=== PATIENT | female | born 1965 | race Caucasian/White ===

== ENCOUNTER → 2018-08-04 | Outpatient (CLI) | payer MEDICARE, OTHER | END | disposition home or self-care (01) | LOC: LABWHC1 08:12 | PROVIDERS: ATTEND Psychiatry & Neurology Pain Medicine | DX: Z53.9 Procedure and treatment not carried out, unspecified reason (principal) ==

== ENCOUNTER → 2018-08-11 | Outpatient (CLI) | payer MEDICARE, OTHER ==
[2018-08-11 09:56] VITALS: BP 119/84; PULSE 77; RESP 16; TEMP 97.6; BMI 35.5
--- NOTE | 2018-08-11 10:32 | P.HPOB ---
History of Present Illness H&P Date: 08/11/18 Chief Complaint: The patient is here for her routine gynecologic exam and mammogram. This is a 53-year-old with an LMP of 2017. The patient is without gynecologic complaints and denies any postmenopausal bleeding. She has lost over 100 pounds following her bariatric surgery done in June 2017. Review of Systems The patient has lost 113 pounds over the last year following Her bariatric surgery. She denies respiratory, cardiac, or G.I. problems. Neuro: she has had episodes of dizziness over the past 2 months and is undergoing neurological evaluation for this. Past Medical History Past Medical History: Asthma, Diabetes Mellitus (Type II diabetes diet controlled after bariatric surgery), Hypertension (Diet controlled after bariatric surgery) Additional Past Medical History / Comment(s): TYPE II DM with peripheral neuropathy. 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 History of Any Multi-Drug Resistant Organisms: None Reported Past Surgical History: Bariatric Surgery (Gastric sleeve), Bladder Surgery, Uterine Ablation Additional Past Surgical History / Comment(s): Hemorrhoid removal. Colonoscopy 2012 Past Psychological History: Depression Smoking Status: Former smoker (Quit 1998) Past Alcohol Use History: None Reported Past Drug Use History: None Reported Additional History: She has been since 2005 and is disabled because of her neuropathy. - Past Family History Father Family Medical History: Myocardial Infarction ([place]) Additional Family Medical History / Comment(s): Aortic aneurysm Mother Family Medical History: Cancer (Lung cancer) Additional Family Medical History / Comment(s): Aunt had breast cancer. Sister(s) Family Medical History: Cancer (Colon cancer) Medications and Allergies Home Medications Medication Instructions Recorded Confirmed Type Aspirin 81 mg PO DAILY 08/10/18 08/11/18 History Atorvastatin [Lipitor] 10 mg PO HS 08/10/18 08/11/18 History Cholecalciferol (Vitamin D3) 2,000 unit PO DAILY 08/10/18 08/10/18 History [Vitamin D3] DULoxetine HCL [Cymbalta] 60 mg PO DAILY 08/10/18 08/11/18 History Gabapentin [Neurontin] 300 mg PO TID 08/10/18 08/11/18 History Meclizine [Antivert] 25 mg PO BID 08/10/18 08/11/18 History Omeprazole 20 mg PO DAILY 08/10/18 08/11/18 History Allergies Allergy/AdvReac Type Severity Reaction Status Date / Time hydromorphone [From Dilaudid] Allergy Rash/Hives Verified 08/11/18 09:43 Penicillins Allergy Unknown Verified 08/11/18 09:43 Childhood Sulfa (Sulfonamide Allergy Rash/Hives Verified 08/11/18 09:43 Antibiotics) metronidazole [From Flagyl] AdvReac Severe Nausea Unverified 08/11/18 09:44 Exam Vital Signs Temp Pulse Resp BP Pulse Ox 08/11/18 09:47 97.6 F 77 16 119/84 98 Intake and Output 08/10/18 08/11/18 08/11/18 22:59 06:59 14:59 Other: Weight 99.79 kg Height 5'6", weight 220 pounds, BMI 35.5. This is a well-developed well-nourished heavyset white female who is alert and oriented times 3 in no acute distress. HEENT: Within normal limits. NECK: Supple without mass or thyromegaly. CHEST AND LUNGS: Clear to auscultation. HEART: Regular rate and rhythm. BREASTS: Are without mass or discharge. AXILLARY EXAM: Negative for adenopathy. BACK: Negative for CVA tenderness. ABDOMEN: Soft, nontender, without palpable masses. PELVIC EXAM: Normal external genitalia with mild atrophy. Cervix and vagina appear normal is mild atrophy. There is no unusual discharge. There is no evidence of prolapse. The uterus is midposition, nongravid size and nontender. There are no palpable adnexal masses or tenderness. RECTAL EXAM: rectovaginal exam is negative for mass or tenderness and is negative for occult blood. EXTREMITIES: Nontender. IMPRESSION: 1. 53-year-old menopausal female with normal gynecologic exam. 2. Significant weight loss following bariatric surgery one year ago. PLAN: 1. Pap smear was performed. 2. Self breast awareness was discussed with the patient. 3. Screening mammogram will be done today. 4. Osteoporosis prevention was discussed. I have stressed the importance of adequate calcium, vitamin D and regular exercise. Recommended amounts of calcium and vitamin D were also discussed. 5. She will return in one year.
--- NOTE | 2018-08-12 11:21 | MM ---
Reason for exam: screening (asymptomatic). Last mammogram was performed 1 year and 2 months ago. History: Patient is postmenopausal. Family history of breast cancer in maternal aunt. Physical Findings: A clinical breast exam by your physician is recommended on an annual basis and results should be correlated with mammographic findings. MG 3D Screening Mammo W/Cad Bilateral CC and MLO view(s) were taken. Prior study comparison: June 09, 2017, bilateral MG 3d screening mammo w/cad. May 27, 2016, bilateral MG 3d screening mammo w/cad. The breast tissue is heterogeneously dense. This may lower the sensitivity of mammography. No suspicious abnormality. No significant changes when compared with prior studies. ASSESSMENT: Negative, BI-RAD 1 RECOMMENDATION: Routine screening mammogram of both breasts in 1 year.
== END | disposition home or self-care (01) ==
LOC: WWCWWP 09:12
PROVIDERS: ATTEND Obstetrics & Gynecology
DX: Z12.31 Encounter for screening mammogram for malignant neoplasm of breast (principal)
CPT/HCPCS: 77063; 77067

== ENCOUNTER → 2018-08-12 | Day surgery (SDC) | payer MEDICARE, OTHER ==
[2018-08-10 13:10] VITALS: BMI 34.9
[~2018-08-12] MED LIST: SODIUM CHLORIDE 0.9% 1,000 ML IV SCH
[2018-08-12 08:33] VITALS: RESP 18; TEMP 97.7
[2018-08-12 10:23] VITALS: BP 145/99; PULSE 63
--- NOTE | 2018-08-12 15:35 | P.PCN ---
Preoperative Diagnosis: Diagnosis Recurrent dizzy spells Twelve-lead ECG shows sinus rhythm normal PA narrow QRS normal ST segments Tilt table test per protocol Baseline blood pressure 134/91 mmHg She was tilted upright at an angle of 70 per protocol after about 40 minutes into the tilt sinus tachycardia 207 beats was noted. She started sweating became dizzy and lightheaded and then passed out. At that time the lowest blood pressure recorded was 63/43 mmHg. This was followed by bradycardia to 44 beats a minute When she was laid supine her blood pressure and heart rate normalized Impression Normal twelve-lead ECG Vasodepressive response to upright tilting him a neurocardiogenic syncope
== END ==
LOC: CATHEP 07:59
PROVIDERS: ATTEND Internal Medicine Clinical Cardiac Electrophysiology
DX: R55 Syncope and collapse (principal); Z88.0 Allergy status to penicillin
CPT/HCPCS: 81025; 93660

== ENCOUNTER 2018-11-24 10:15 | Day surgery (SDC) | payer MEDICARE, OTHER ==
[2018-11-23 11:44] VITALS: BMI 35.6
[2018-11-24] MEDS ORDERED: LIDOCAINE 1% 20 ML VIAL (10MG/ML) FOR IV START INTRADERMA ONE (10:50)
[2018-11-24] MEDS ORDERED: LACTATED RINGERS 1,000 ML IV ONE (10:50)
[2018-11-24 10:54] VITALS: RESP 16; TEMP 97.8
[2018-11-24 10:56] LABS: Glucose,Whole Blood 81 mg/dL (75-99)
[2018-11-24] MEDS ORDERED: PROPOFOL 10 MG/ML 20 ML VIAL IV ONE (11:56)
--- NOTE | 2018-11-24 11:56 | P.GSHP ---
History of Present Illness H&P Date: 11/24/18 Chief Complaint: Screening, family history Patient here today for screening colonoscopy. Family history of colon cancer in her sister. She was scheduled for upper and lower endoscopy yesterday. Her bowel prep and unfortunately was poor and her colonoscopy was aborted. Past Medical History Past Medical History: Asthma, Diabetes Mellitus, Hypertension, Syncope Additional Past Medical History / Comment(s): TYPE II DM w/ peripheral neuropathy. VASOVAGAL SYNCOPE. HAS LOW BLOOD PRESSURE NOW. ATTEMPTED COLONOSCOPY TODAY UNSUCCESSFUL. History of Any Multi-Drug Resistant Organisms: None Reported Past Surgical History: Bariatric Surgery, Bladder Surgery, Uterine Ablation Additional Past Surgical History / Comment(s): Hemorrhoid removal. Colonoscopy 2012. 06/2017 GASTRIC SLEEVE. TILT TABLE TEST 08/12/18. EGD, ATTEMPTED COLONOSCOPY 11/23/18. Past Anesthesia/Blood Transfusion Reactions: Family History of Problems w/ Anesthesia Additional Past Anesthesia/Blood Transfusion Reaction / Comment(s): SISTER VERY SLOW TO AWAKEN. Smoking Status: Former smoker - Past Family History Mother Family Medical History: Cancer Additional Family Medical History / Comment(s): LUNG CANCER Sister(s) Family Medical History: Cancer Additional Family Medical History / Comment(s): STOMACH CANCER , COLON CANCER Father Family Medical History: Myocardial Infarction ([place]) Additional Family Medical History / Comment(s): Aortic aneurysm Medications and Allergies Home Medications Medication Instructions Recorded Confirmed Type Aspirin 81 mg PO DAILY 08/10/18 11/24/18 History Atorvastatin [Lipitor] 10 mg PO HS 08/10/18 11/24/18 History Cholecalciferol (Vitamin D3) 2,000 unit PO DAILY 08/10/18 11/24/18 History [Vitamin D3] DULoxetine HCL [Cymbalta] 60 mg PO DAILY 08/10/18 11/24/18 History Gabapentin [Neurontin] 300 mg PO TID 08/10/18 11/24/18 History Omeprazole 20 mg PO DAILY 08/10/18 11/24/18 History Fludrocortisone [Florinef] 0.1 mg PO DAILY 11/23/18 11/24/18 History Multivitamins, Thera [Multivitamin 1 tab PO DAILY 11/23/18 11/24/18 History (formulary)] traZODone HCL [Desyrel] 100 mg PO HS 11/23/18 11/24/18 History Allergies Allergy/AdvReac Type Severity Reaction Status Date / Time hydromorphone [From Dilaudid] Allergy Rash/Hives Verified 11/24/18 10:40 Penicillins Allergy Unknown Verified 11/24/18 10:40 Childhood Sulfa (Sulfonamide Allergy Rash/Hives Verified 11/24/18 10:40 Antibiotics) metronidazole [From Flagyl] AdvReac Severe Nausea Unverified 11/24/18 10:40 Surgical - Exam Vital Signs Temp Pulse Resp BP Pulse Ox 97.8 F 68 16 145/78 100 11/24/18 10:52 11/24/18 10:52 11/24/18 10:52 11/24/18 10:52 11/24/18 10:52 Physical exam: General: Well-developed, well-nourished HEENT: Normocephalic, sclerae nonicteric Abdomen: Nontender, nondistended Extremities: No edema Neuro: Alert and oriented Assessment and Plan (1) Screening for colon cancer Narrative/Plan: Will proceed with colonoscopy at this time. Current Visit: Yes Status: Acute Code(s): Z12.11 - ENCOUNTER FOR SCREENING FOR MALIGNANT NEOPLASM OF COLON SNOMED Code(s): 559100900
--- NOTE | 2018-11-24 12:17 | P.PCN ---
Date of Procedure: 11/24/18 Procedure(s) Performed: PREOPERATIVE DIAGNOSIS: Colon cancer screening, family history of colon cancer POSTOPERATIVE DIAGNOSIS: Tortuous colon, unable to reach cecum PROCEDURE: Colonoscopy to the hepatic flexure ANESTHESIA: MAC SURGEON: Alonso Looney M.D. SPECIMENS: None ENDOSCOPIC PROCEDURE: The patient was placed on the endoscopy table in the left decubitus position. The Olympus colonoscope was inserted into the anus and passed under direct visualization to the suspected region of the hepatic flex ure. We couldn't not obtain any additional momentum moving forward once we reach that point. There was no obstruction seen. The patient had a significantly tortuous left colon. Multiple attempts were tried. From that point the scope was slowly withdrawn. There were no abnormalities identified throughout the transverse descending sigmoid and rectum. There was no diverticulosis seen. Digital rectal examination was normal. The patient was taken to the recovery room in stable condition per anesthesia guidelines. RECOMMENDATIONS: Resume liquid diet. We'll discuss options of barium enema with this patient.
[2018-11-24 12:20] VITALS: BP 121/77; PULSE 64
== END 2018-11-24 13:09 | disposition home or self-care (01) ==
LOC: ORWHC2ENDO 10:15
PROVIDERS: ATTEND Surgery
DX: Z12.11 Encounter for screening for malignant neoplasm of colon (principal); Z80.0 Family history of malignant neoplasm of digestive organs; E11.42 Type 2 diabetes mellitus with diabetic polyneuropathy; I10 Essential (primary) hypertension; J45.909 Unspecified asthma, uncomplicated; Z79.82 Long term (current) use of aspirin; Z87.891 Personal history of nicotine dependence; Z88.0 Allergy status to penicillin; Z88.1 Allergy status to other antibiotic agents; Z88.2 Allergy status to sulfonamides; Z88.5 Allergy status to narcotic agent; Z79.899 Other long term (current) drug therapy
CPT/HCPCS: 45330; J2704; 45378

== ENCOUNTER → 2019-02-17 | Outpatient (CLI) | payer MEDICARE, OTHER ==
--- NOTE | 2019-02-18 06:28 | CT ---
EXAMINATION TYPE: CT abdomen pelvis wo con DATE OF EXAM: 02/17/2019 HISTORY: Rt renal cyst. Bariatric prep only. CT DLP: 1055.70 mGycm. Automated Exposure Control for Dose Reduction was Utilized. TECHNIQUE: CT scan of the abdomen and pelvis is performed without oral and without IV contrast. COMPARISON: NONE FINDINGS: Within the limitations of a non-contrast study, the following observations are made. LUNG BASES: No significant abnormality is appreciated. LIVER/GB: No significant abnormality is appreciated. PANCREAS: No significant abnormality is seen. SPLEEN: No significant abnormality is seen. ADRENALS: No significant abnormality is seen. KIDNEYS: No renal calculi are evident bilaterally. There are central parapelvic cysts in both kidneys . No hydronephrosis or hydroureter clearly seen bilaterally. Bladder is poorly distended without intr aluminal calculus. BOWEL: Surgical changes from gastric sleeve procedure are identified. Hyperdense material is seen in proximal bowel loops. No suspicious small or large bowel dilatation is identified. The amount of colo ben fecal material is slightly prominent particularly in the sigmoid rectal colon. GENITAL ORGANS: Uterus is anteverted in shape projecting to right of midline with bulkiness, underlyi ng fibroids suspected. Correlate clinically. LYMPH NODES: No greater than 1cm abdominal or pelvic lymph nodes are appreciated. OSSEOUS STRUCTURES: Moderate to severe disc space narrowing with endplate sclerosis and moderate spur ring right L4-L5 level. Some ossific fusion of the visualized lower thoracic vertebra. Facet arthropa thy lower lumbar levels. Mild/moderate narrowing in both hip joints. OTHER: No significant additional abnormality is seen. IMPRESSION: 1. Noncontrast CT shows fairly simple-appearing parapelvic cysts bilaterally. 2. Probable fibroid uterus, correlate clinically. 3. Overall nonobstructive bowel gas pattern. Mild to moderate diffuse colonic fecal stasis is felt pr esent.
== END | disposition home or self-care (01) ==
LOC: RADCTMAIN 15:43
PROVIDERS: ATTEND Urology
DX: N94.89 Other specified conditions associated with female genital organs and menstrual cycle (principal); K59.8 Other specified functional intestinal disorders; Z88.0 Allergy status to penicillin; Z88.2 Allergy status to sulfonamides; Z88.5 Allergy status to narcotic agent; Z88.1 Allergy status to other antibiotic agents
CPT/HCPCS: 74176

== ENCOUNTER → 2019-05-31 | Outpatient (CLI) | payer MEDICARE, OTHER ==
[2019-05-31 14:20] VITALS: BP 151/88; PULSE 75; TEMP 98.1; BMI 36.3
--- NOTE | 2019-05-31 15:12 | P.BASOAP ---
Subjective Progress Note Date: 05/31/19 Principal diagnosis: Morbid obesity Patient returns to the office after being seen last in February. Original sleep surgery June 2017. She has lost a little bit over 100 pounds total since surgery. She has gained almost 3 pounds since her last visit. She is having significant arm pain. She apparently is having IV steroid injections next week for arm pain and neuropathy. She has been walking try to do 6-10,000 steps per day. Denies vomiting or nausea. Mild GERD symptoms. Still on daily antiacids. Objective - Vital Signs Vital signs: Vital Signs Temp 98.1 F 05/31/19 14:11 Pulse 75 05/31/19 14:11 Resp BP 151/88 05/31/19 14:11 Pulse Ox Intake & Output 05/30/19 05/31/19 05/31/19 18:59 06:59 18:59 Weight 105.233 kg - Exam Abdomen: Soft, nontender, nondistended Assessment/Plan (1) Morbid obesity Narrative/Plan: Continue increasing her exercise as tolerated. Continue monitoring calories. Follow-up 3 months we'll check two-year labs at that time. Plan: Date: 05/31/19 Initial Weight: Initial BMI: Current Weight: 105.233 kg Current BMI: 36.3 Type of Surgery: Total Volume in Band: Previous Volume: Volume Removed: Volume Added: Band Size:
== END | disposition home or self-care (01) ==
LOC: BARWHC3 13:26
PROVIDERS: ATTEND Surgery
DX: E66.01 Morbid (severe) obesity due to excess calories (principal); Z68.36 Body mass index [BMI] 36.0-36.9, adult
CPT/HCPCS: 99211

== ENCOUNTER → 2019-12-22 | Outpatient (CLI) | payer MEDICARE, OTHER ==
[2019-12-22 16:45] LABS: Chol/HDL Ratio 1.81
== END | disposition home or self-care (01) ==
LOC: LABWHC1 07:27
PROVIDERS: ATTEND Psychiatry & Neurology Pain Medicine
DX: Z51.81 Encounter for therapeutic drug level monitoring (principal)
CPT/HCPCS: 36415; 80061; 82306

== ENCOUNTER → 2020-02-28 | Outpatient (CLI) | payer MEDICARE, OTHER ==
--- NOTE | 2020-02-28 17:02 | CONS ---
CONSULTATION REASON FOR CONSULTATION: Sleep apnea. This is a 54-year-old female patient who was referred to me for sleep apnea evaluation. The patient has been morbidly obese and she underwent gastric sleeve surgery back in 2019. She has lost around 100 pounds. Currently she has plateaued down to 240 pounds. She has chronic anxiety and depression, hyperlipidemia and hypertension. She has had also previous history of syncope, for which she was given Florinef. She was investigated for MS and she was seen also at [facility] and she checked negative. Her Clifton score is 12. She snores. She claims that she quits breathing at night, that she wakes up gasping for air. She is going to bed between 10 p.m. and midnight and she is waking up between 6 and 9 a.m. in the morning. She is averaging around 6 to 7 hours of sleep. Her weight has plateaued, as mentioned. She reads in her bedroom. She sleeps in different body positions, including on her back. She does take naps during the day. She drinks around 2 to 3 cups of caffeinated beverages to keep herself stimulated during the day. No sleep paralysis. No hallucinations. No cataplexy. She is a bit restless at night and she jerks, although her symptoms are not typical of restless legs syndrome. PAST MEDICAL HISTORY: Obesity, post bariatric surgery, hyperlipidemia and chronic anxiety and depression. History of syncope and hypertension. PAST SURGICAL HISTORY: Past surgical history includes gastric sleeve. DRUG ALLERGIES: SULFA, PENICILLIN. OUTPATIENT MEDICATION LIST: Outpatient medication list includes: 1. Gabapentin 400 mg 4 times a day. 2. Cymbalta 60 mg p.o. daily. 3. Lipitor 10 mg p.o. daily. 4. Omeprazole 20 mg p.o. daily. 5. Metoprolol 25 mg twice a day. 6. Fludrocortisone 0.1 mg twice a day. 7. Vitamin D3 2000 units daily. 8. Low-dose aspirin 81 mg p.o. daily. 9. Vitamin B12 5000 mcg p.o. daily. SOCIAL HISTORY: She quit smoking 20 years ago. She is a former smoker. No history of alcoholism. No history of IV drugs. FAMILY HISTORY: Aunt has sleep apnea. REVIEW OF SYSTEMS: Fourteen-point review of system was done. No nocturia. No grinding of the teeth. No sleepwalking. There is positive anxiety and positive history of depression. No claustrophobia. She feels fatigued and tired during the day. Her Clifton score is 12. No history of any motor vehicle accident because of feeling drowsy or sleepy. No chest pain. No angina. No palpitations. No shortness of breath. No nausea, vomiting, diarrhea or heartburn. PHYSICAL EXAMINATION: VITAL SIGNS: BP is 167/97, pulse 78, respirations 16, temperature 97.8. Saturation 97% on room air. BMI 38.0, weight is 240. Height is 5 feet 6 inches and neck size is 14- 1/2 inches. GENERAL APPEARANCE: Calm, comfortable. HEAD: Atraumatic, normocephalic. Neck is supple. Mallampati class II. Slight overbite. LUNGS: Clear to auscultation. HEART: Heart sounds are regular rate and rhythm. Normal S1, S2. No S3, S4. No murmurs. ABDOMEN: Soft, nontender. No organomegaly. EXTREMITIES: No edema. No cyanosis or clubbing. NEUROLOGIC: Awake and alert. There is no focal neurological deficit. IMPRESSION: 1. Hypersomnia with Clifton score of 12, under investigation. Rule out obstructive sleep apnea. 2. Obesity. BMI of 38.1. 3. Previous history of gastric sleeve with subsequent 100-pound weight loss. Current weight is 240 with a BMI of 38.1. 4. Chronic anxiety/depression. 5. Hypertension. 6. Hyperlipidemia. PLAN: 1. Proceed with a screening polysomnogram. 2. Overall suspicion is low for sleep apnea. Will investigate this patient further and make further recommendations based on the results. 3. Sleep hygiene measures in general are acceptable. 4. Treat comorbidities. 5. Will continue to follow. MMODL / IJN: [id number] /
== END | disposition home or self-care (01) ==
LOC: SLEEP 15:53
PROVIDERS: ATTEND Internal Medicine Critical Care Medicine
DX: G47.10 Hypersomnia, unspecified (principal); F41.9 Anxiety disorder, unspecified; F32.9 Major depressive disorder, single episode, unspecified; E66.9 Obesity, unspecified; I10 Essential (primary) hypertension; E78.5 Hyperlipidemia, unspecified; R63.4 Abnormal weight loss; Z68.38 Body mass index [BMI] 38.0-38.9, adult
CPT/HCPCS: 99211

== ENCOUNTER → 2020-07-17 | Outpatient (CLI) | payer MEDICARE, OTHER ==
[2020-07-17 08:18] VITALS: BP 165/96; PULSE 76; RESP 18; TEMP 97.9
--- NOTE | 2020-07-17 08:51 | P.HPOB ---
History of Present Illness H&P Date: 07/17/20 Chief Complaint: The patient is here for her routine gynecologic exam and ma mmogram. This is a 55-year-old with an LMP of 2017. The patient is without gynecologic complaints. Review of Systems The patient has gained 13 pounds over the last year. This is after she lost over 100 pounds following her bariatric surgery in 2018. She denies respiratory, cardiac, or G.I. problems. Past Medical History Past Medical History: Asthma, Diabetes Mellitus, Hypertension, Syncope Additional Past Medical History / Comment(s): TYPE II DM w/ peripheral neuropathy. VASOVAGAL SYNCOPE. 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 History of Any Multi-Drug Resistant Organisms: None Reported Past Surgical History: Bariatric Surgery, Bladder Surgery, Uterine Ablation Additional Past Surgical History / Comment(s): Hemorrhoid removal. 06/2017 GASTRIC SLEEVE. TILT TABLE TEST 08/12/18. EGD, ATTEMPTED COLONOSCOPY 11/23/18. Past Anesthesia/Blood Transfusion Reactions: Family History of Problems w/ Anesthesia Additional Past Anesthesia/Blood Transfusion Reaction / Comment(s): SISTER VERY SLOW TO AWAKEN. Past Psychological History: Depression Smoking Status: Former smoker Past Alcohol Use History: None Reported Additional Past Alcohol Use History / Comment(s): SMOKED 13 YEARS, 1 PPD, QUIT 1999 Past Drug Use History: None Reported Additional History: She has been since 2006 and is disabled because of her neuropathy. - Past Family History Mother Family Medical History: Cancer Additional Family Medical History / Comment(s): LUNG CANCER Sister(s) Family Medical History: Cancer Additional Family Medical History / Comment(s): STOMACH CANCER , COLON CANCER Father Family Medical History: Myocardial Infarction ([place]) Additional Family Medical History / Comment(s): Aortic aneurysm Medications and Allergies Home Medications Medication Instructions Recorded Confirmed Type Aspirin 81 mg PO DAILY 08/10/18 07/17/20 History Atorvastatin [Lipitor] 10 mg PO HS 08/10/18 07/17/20 History Cholecalciferol (Vitamin D3) 2,000 unit PO DAILY 08/10/18 07/17/20 History [Vitamin D3] DULoxetine HCL [Cymbalta] 60 mg PO DAILY 08/10/18 07/17/20 History Gabapentin [Neurontin] 300 mg PO TID 08/10/18 07/17/20 History Fludrocortisone [Florinef] 0.1 mg PO DAILY 11/23/18 07/17/20 History Multivitamins, Thera [Multivitamin 1 tab PO DAILY 11/23/18 07/17/20 History (formulary)] traZODone HCL [Desyrel] 100 mg PO HS 11/23/18 07/17/20 History Cyanocobalamin (Vitamin B-12) 5,000 mcg PO DAILY 07/17/20 07/17/20 History [Vitamin B-12] Famotidine 20 mg PO HS 07/17/20 07/17/20 History Pantoprazole [Protonix] 1 tab PO BID 07/17/20 07/17/20 History Allergies Allergy/AdvReac Type Severity Reaction Status Date / Time hydromorphone [From Dilaudid] Allergy Rash/Hives Verified 07/17/20 08:05 Penicillins Allergy Unknown Verified 07/17/20 08:05 Childhood Sulfa (Sulfonamide Allergy Rash/Hives Verified 07/17/20 08:05 Antibiotics) metronidazole [From Flagyl] AdvReac Severe Nausea Unverified 07/17/20 08:05 Exam Vital Signs Temp Pulse Resp BP Pulse Ox 07/17/20 08:10 97.9 F 76 18 165/96 98 Intake and Output 07/16/20 07/17/20 07/17/20 22:59 06:59 14:59 Other: Weight 105.687 kg Height 5 feet 7 inches, weight 233 pounds, BMI 36.5. This is a well-developed well-nourished heavyset white female who is alert and oriented times 3 in no acute distress. HEENT: Within normal limits. NECK: Supple without mass or thyromegaly. CHEST AND LUNGS: Clear to auscultation. HEART: Regular rate and rhythm. BREASTS: Are without mass or discharge. AXILLARY EXAM: Negative for adenopathy. BACK: Negative for CVA tenderness. ABDOMEN: Soft, nontender, without palpable masses. PELVIC EXAM: Normal external genitalia with mild atrophy. Cervix and vagina appear normal mild atrophy. There is no unusual discharge. There is a grade 2 rectocele. The uterus is midposition, nongravid size and nontender. There are n o palpable adnexal masses or tenderness. RECTAL EXAM: Rectovaginal exam is negative for mass or tenderness and is negative for occult blood and confirms a small rectocele. EXTREMITIES: Nontender. IMPRESSION: 1. 55-year-old menopausal female with grade 2 rectocele and otherwise unremarkable gynecologic exam. 2. Elevated blood pressure. PLAN: 1. Pap smear was deferred since she had a normal one on 08/11/2018. 2. Self breast awareness was discussed with the patient. 3. Screening mammogram will be done today. 4. I have recommended that she check her blood pressures at home on a regular b asis. She states she does have a blood pressure cuff for this. She is to follow up with Dr. Wood for blood pressure elevations. 5. Osteoporosis prevention was discussed. I have stressed the importance of adequate calcium, vitamin D and regular exercise. Recommended amounts of calcium and vitamin D were also discussed. 6. She states she plans on getting the COVID vaccination when it becomes available to her. 7. We have discussed her grade 2 rectocele. I have stressed the importance of not holding her stool longer than necessary. She will call if problems. 8. She was advised to return in one year for her annual well woman exam.
--- NOTE | 2020-07-18 11:12 | MM ---
Reason for exam: screening (asymptomatic). Last mammogram was performed 1 year and 11 months ago. History: Patient is postmenopausal. Family history of breast cancer in maternal aunt. Physical Findings: A clinical breast exam by your physician is recommended on an annual basis and results should be correlated with mammographic findings. MG 3D Screening Mammo W/Cad Bilateral CC and MLO view(s) were taken. Prior study comparison: August 11, 2018, bilateral MG 3d screening mammo w/cad. June 09, 2017, bilateral MG 3d screening mammo w/cad. The breast tissue is heterogeneously dense. This may lower the sensitivity of mammography. Finding #1: There is a 25 mm obscured oval mass in the slight outer quadrant, middle, central position of the left breast, fairly stable but no prior ultrasound on review. Finding #2: There are typically benign round calcifications in both breasts. Asymmetric breast tissue left upper outer quadrant posterior stable. ASSESSMENT: Incomplete: need additional imaging evaluation, BI-RAD 0 RECOMMENDATION: Ultrasound of the left breast. [facility] will attempt to contact patient to return for ultrasound.
== END | disposition home or self-care (01) ==
LOC: WWCWWP 07:55
PROVIDERS: ATTEND Obstetrics & Gynecology
DX: Z12.31 Encounter for screening mammogram for malignant neoplasm of breast (principal)
CPT/HCPCS: 77063; 77067

== ENCOUNTER → 2020-07-27 | Outpatient (CLI) | payer MEDICARE, OTHER ==
--- NOTE | 2020-07-27 08:29 | USB ---
Reason for exam: additional evaluation requested from abnormal screening. History: Patient is postmenopausal. Family history of breast cancer in maternal aunt. Physical Findings: Nurse did not find any significant physical abnormalities on exam. US Breast Workup LT Technologist: Parul Cordova Left complete breast ultrasound includes all four quadrants, the retroareolar region and axilla. Finding demonstrates a 1.8 x 2.0 x 1.2cm lesion at 4 o'clock for which a biopsy is recommended. These results were verbally communicated with the patient and result sheet given to the patient on 07/27/20. ASSESSMENT: Suspicious, BI-RAD 4 RECOMMENDATION: Ultrasound core biopsy of the left breast. Called Dr. Palacios's office with mammographic findings and has scheduled an appointment for the patient for 08/29/20 at 4:[address] Miller. Biopsy scheduled for 08/06/20 at 9:30. PRELIMINARY REPORT CALLED AND FAXED TO DR. MILLER ON 07/27/20.
== END | disposition home or self-care (01) ==
LOC: RADUSWWP 07:01
PROVIDERS: ATTEND Obstetrics & Gynecology
DX: R92.8 Other abnormal and inconclusive findings on diagnostic imaging of breast (principal)

== ENCOUNTER → 2020-08-06 | Day surgery (SDC) | payer MEDICARE, OTHER ==
[2020-08-06 12:28] VITALS: RESP 16
[2020-08-06 13:50] VITALS: BP 121/94; PULSE 60; TEMP 97.6
--- NOTE | 2020-08-06 16:38 | USB ---
EXAMINATION TYPE: US biopsy breast VAD LT, MG post biopsy diagnostic mammo LT wo CAD DATE OF EXAM: 08/06/2020 CLINICAL HISTORY: 55-year-old female R92.8 abnormal left mammogram. TECHNIQUE: Ultrasound guided core biopsy of the left breast. COMPARISON: 07/27/2020, 07/17/2020, 08/11/2018, 06/09/2017, 04/24/2015 FINDINGS: The procedure of ultrasound guided core biopsy was explained to the patient. Benefits, alt ernatives, and risks were discussed. An informed consent was then obtained. The heterogeneous echogenic area within the 4:00 left breast measuring 2.8 cm corresponding to the ma mmographic focal asymmetry identified and targeted for biopsy. The patient was placed in supine positioning for imaging and for the procedure. The overlying skin w as prepped and draped in usual sterile fashion. Lidocaine was used as anesthetic into the skin and s ubcutaneous tissue up to area of concern in the 4:00 left breast Under ultrasound guidance, a 13-gauge vacuum-assisted mammotome biopsy gun was used to obtain 8 core samples. Following this, a coil clip was left in lesion. The patient tolerated the procedure well without any immediate complication. The patient was kept in the radiology department for short stay after the procedure and then discharged home in stable condi tion. Post procedure mammogram shows coil clip at the mammographic focal asymmetry at the 4:00 position. IMPRESSION: Successful, uncomplicated ultrasound guided core biopsy of heterogeneous echogenic area within the 4: 00 left breast corresponding to the mammographic focal asymmetry. A benign etiology is suspected give n that the finding was present back to at least 2014 and has only slightly increased in size. Full pa thology results to follow.
== END ==
LOC: RADUSWWP 11:50
PROVIDERS: ATTEND Surgery
DX: N60.32 Fibrosclerosis of left breast (principal); R92.8 Other abnormal and inconclusive findings on diagnostic imaging of breast; Z88.1 Allergy status to other antibiotic agents; Z88.5 Allergy status to narcotic agent; Z88.0 Allergy status to penicillin; Z88.2 Allergy status to sulfonamides
CPT/HCPCS: 19083; 88305; 77065; A4648; J2001

== ENCOUNTER → 2021-02-05 | Outpatient (CLI) | payer MEDICARE, OTHER ==
--- NOTE | 2021-02-06 10:50 | MM ---
Reason for exam: follow-up at short interval from prior study. Last mammogram was performed 6 months ago. History: Patient is postmenopausal. Family history of breast cancer in maternal aunt at age 50. Benign US biopsy breast VAD LT of the left breast, August 06, 2020. Physical Findings: Nurse did not find any significant physical abnormalities on exam. MG 3D Diag Mammo W/Cad LT CC and MLO view(s) were taken of the left breast. Prior study comparison: August 06, 2020, left breast MG diagnostic mammo LT wo CAD. July 17, 2020, bilateral MG 3d screening mammo w/cad. The breast tissue is heterogeneously dense. This may lower the sensitivity of mammography. Benign appearing calcifications in the left breast. Previous mammotome biopsy in the left breast. There is chronic nodularity in the left breast. These results were verbally communicated with the patient and result sheet given to the patient on 02/05/21. ASSESSMENT: Benign, BI-RAD 2 RECOMMENDATION: Return to routine screening mammogram schedule for both breasts. Back on schedule for June 2021.
--- NOTE | 2021-02-06 10:52 | USB ---
Reason for exam: follow-up at short interval from prior study. History: Patient is postmenopausal. Family history of breast cancer in maternal aunt at age 50. Benign US biopsy breast VAD LT of the left breast, August 06, 2020. US Breast Limited LT Technologist: Parul Cordova Left limited breast ultrasound including focal area of concern, retroareolar and axilla demonstrates a 2.2 x 1.4 x 1.1cm oval lesion at 4 o'clock. These results were verbally communicated with the patient and result sheet given to the patient on 02/05/21. ASSESSMENT: Benign, BI-RAD 2 RECOMMENDATION: Surgical consultation of the left breast. Patient will call Dr. Looney's office to schedule surgical consult if needed after Keira mammogram. Return to routine screening mammogram schedule for both breasts. Back on schedule for June 2021.
== END | disposition home or self-care (01) ==
LOC: RADMAMWWP 08:43
PROVIDERS: ATTEND Surgery
DX: R92.2 Inconclusive mammogram (principal); R92.1 Mammographic calcification found on diagnostic imaging of breast; N64.89 Other specified disorders of breast; Z78.0 Asymptomatic menopausal state; Z80.3 Family history of malignant neoplasm of breast
CPT/HCPCS: 77065; 76642; G0279; 77061

== ENCOUNTER → 2022-04-24 | Outpatient (CLI) | payer MEDICARE, OTHER ==
--- NOTE | 2022-04-25 09:57 | MM ---
Reason for Exam: Screening (asymptomatic). Last mammogram was performed 1 year(s) and 9 month(s) ago. Patient History: Menarche at age 9. First Full-Term at age 22. Postmenopausal. 08/06/2020, Benign Core Biopsy on the left side. Maternal aunt had breast cancer, age 50. Risk Values: Caro 5 year model risk: 1.6%. NCI Lifetime model risk: 8.9%. Prior Study Comparison: 07/17/2020 Bilateral Screening Mammogram, [facility]. 08/06/2020 Left Diagnostic Mammogram, [facility]. 02/05/2021 Left Diagnostic Mammogram, [facility]. Tissue Density: The breast tissue is heterogeneously dense. This may lower the sensitivity of mammography. Findings: Analyzed By CAD. There is no suspicious group of microcalcifications or new suspicious mass in either breast. Left breast biopsy clip. Overall Assessment: Negative, BI-RAD 1 Management: Screening Mammogram of both breasts in 1 year. A clinical breast exam by your physician is recommended on an annual basis and results should be correlated with mammographic findings. [facility] will attempt to contact patient to return for supplemental views and ultrasound if indicated. Electronically signed and approved by: Rafael Aaron DO
== END | disposition home or self-care (01) ==
LOC: RADMAMWWP 11:21
PROVIDERS: ATTEND Internal Medicine Geriatric Medicine
DX: Z12.31 Encounter for screening mammogram for malignant neoplasm of breast (principal); Z78.0 Asymptomatic menopausal state; Z80.3 Family history of malignant neoplasm of breast
CPT/HCPCS: 77063; 77067

== ENCOUNTER → 2022-04-24 | Outpatient (CLI) | payer MEDICARE, OTHER ==
--- NOTE | 2022-04-24 12:43 | XR ---
EXAMINATION TYPE: XR shoulder complete LT DATE OF EXAM: 04/24/2022 12:25 PM INDICATION: Patient age:Female; 56 years old; Reason for study: M25.512 pain left shoulder; COMPARISON: None TECHNIQUE: The left shoulder was examined in AP, internally rotated and scapular Y projections. . FINDINGS: No evidence of acute osseous pathology, joint dislocation, or soft tissue swelling. No significant sp urring. The remaining portions of the visualized chest are unremarkable. IMPRESSION: No acute osseous pathology.
== END | disposition home or self-care (01) ==
LOC: RADXRMAIN 11:52
PROVIDERS: ATTEND Internal Medicine Geriatric Medicine
DX: M25.512 Pain in left shoulder (principal)